=== PATIENT | male | born 1970 | race Caucasian/White ===

== ENCOUNTER 2016-05-17 08:10 | Inpatient (IN) | payer MEDICARE ==
[2016-05-17 09:49] LABS: Basophils % (Auto) 0.5 % (0.0-1.8); Eosinophils % (Auto) 0.6 % (0.0-4.3); Hematocrit 38.7 % (35.5-45.6); Hemoglobin 13.1 gm/dl (11.8-15.2); Mean Corpuscular HGB Conc 34 % (32-34); Mean Corpuscular Hemoglobin 27 pg (28-32); Mean Corpuscular Volume 79 fl (84-94); Platelet Count 286 K/mm3 (140-440); Red Blood Count 4.92 M/mm3 (3.65-5.03); Red Cell Distribution Width 14.3 % (13.2-15.2); White Blood Count 10.3 K/mm3 (4.5-11.0)
[2016-05-17 09:50] LABS: Anion Gap 16 mmol/L; BUN/Creatinine Ratio 13.33; Blood Urea Nitrogen 8 mg/dL (9-20); Carbon Dioxide 27 mmol/L (22-30); Chloride 101.2 mmol/L (98-107); Glucose 91 mg/dL (75-100); Potassium 3.7 mmol/L (3.6-5.0); Sodium 140 mmol/L (137-145)
--- NOTE | 2016-05-17 10:43 | Emergency Department Report ---
ED Psych HPI - General Chief Complaint: Psych Stated Complaint: DRUG OVERDOSE Time Seen by Provider: 05/17/16 10:27 Source: patient, EMS, RN notes reviewed Mode of arrival: Ambulatory Limitations: No Limitations - History of Present Illness Initial Comments: This is a 45-year-old male. He is previously unknown to me. The patient is brought to the hospital by EMS. As per EMS documentation, they were contacted at 7:34 AM for an ingestion attempt. As per EMS documentation, patient took Celexa 20 mg, and Wellbutrin xl, 150 mg. EMS estimates that patient took approximately 10 tablets of each, but they are not certain. The patient denies coingestions, he still feels depressed. He denies headache, neck pain, chest pain, abdominal pain and shortness of breath. Denies hallucinations. MD Complaint: suicidal ideation, feels depressed -: Sudden Associated Psychiatric Symptoms: suicidal ideation Quality: constant Improves With: none Worsens With: none Associated Symptoms: denies: confusion, headache, shortness of breath, nausea, vomiting, syncope, insomnia If Self Harm: admits thoughts of, has plan, has acted on plan, intentional overdose - Related Data Home Medications Medication Instructions Recorded Confirmed Last Taken Wellbutrin XL 150 mg PO DAILY 05/17/16 05/17/16 Unknown celeXA 20 mg PO DAILY 05/17/16 05/17/16 Unknown Allergies Allergy/AdvReac Type Severity Reaction Status Date / Time No Known Allergies Allergy Unverified 05/17/16 08:52 ED Review of Systems ROS: Stated complaint: DRUG OVERDOSE Other details as noted in HPI Constitutional: denies: fever Eyes: denies: eye discharge ENT: denies: epistaxis Respiratory: denies: cough Cardiovascular: denies: chest pain Gastrointestinal: denies: abdominal pain Genitourinary: as per HPI Musculoskeletal: as per HPI Skin: as per HPI Neurological: as per HPI, weakness Psychiatric: suicidal thoughts ED Past Medical Hx - Social History Smoking Status: Current Every Day Smoker Substance Use Type: Alcohol - Medications Home Medications: Home Medications Medication Instructions Recorded Confirmed Last Taken Type Wellbutrin XL 150 mg PO DAILY 05/17/16 05/17/16 Unknown History celeXA 20 mg PO DAILY 05/17/16 05/17/16 Unknown History ED Physical Exam - General Limitations: No Limitations General appearance: alert, in no apparent distress - Head Head exam: Present: atraumatic, normocephalic - Eye Eye exam: Present: normal appearance, PERRL, EOMI. Absent: nystagmus - ENT ENT exam: Present: normal exam, normal orophraynx, mucous membranes moist, normal external ear exam - Neck Neck exam: Present: normal inspection, full ROM. Absent: tenderness, meningismus - Respiratory Respiratory exam: Present: normal lung sounds bilaterally. Absent: respiratory distress, wheezes, rales, rhonchi, stridor, chest wall tenderness - Cardiovascular Cardiovascular Exam: Present: regular rate, normal rhythm, normal heart sounds. Absent: bradycardia, tachycardia, irregular rhythm, systolic murmur, diastolic murmur, rubs, gallop - GI/Abdominal GI/Abdominal exam: Present: soft, normal bowel sounds. Absent: distended, tenderness, guarding, rebound, rigid, pulsatile mass - Rectal Rectal exam: Present: deferred - Extremities Exam Extremities exam: Present: normal inspection, full ROM, normal capillary refill. Absent: tenderness, pedal edema, joint swelling, calf tenderness - Back Exam Back exam: Present: normal inspection, full ROM. Absent: tenderness, CVA tenderness (R), CVA tenderness (L), muscle spasm, paraspinal tenderness, vertebral tenderness - Neurological Exam Neurological exam: Present: alert, oriented X3, other (Extraocular movements intact. Tongue midline. No facial droop. Facial sensation intact to light touch in the V1, V2, V3 distribution bilaterally. 5 and 5 strength in 4 extremities.. Sensation is intact to light touch in 4 extremities.). Absent: motor sensory deficit - Psychiatric Psychiatric exam: Present: agitated, suicidal ideation - Skin Skin exam: Present: warm, dry, intact, normal color. Absent: rash ED Course Vital Signs 05/17/16 05/17/16 09:03 15:37 Temperature 98.6 F Pulse Rate 100 H 80 Respiratory 16 16 Rate Blood Pressure 105/75 129/89 [Left] O2 Sat by Pulse 96 99 Oximetry - Reevaluation(s) Reevaluation #1: 05/17/16 12:14 Differential diagnosis: Polysubstance ingestion, medical clearance for psychiatric evaluation Assessment and plan: 45-year-old male who is depressed, attempted to overdose on Wellbutrin and Celexa. He is currently afebrile with reassuring vital signs , and his tachycardia has resolved. He has a GCS of 15, with an NIH score of 0 , currently no active hallucinations, laboratory studies were unremarkable, urinalysis was unremarkable with the exception of cocaine. Clinically he is not cocaine intoxicated. Case is discussed with Elisa at the [facility]. Given overdose of Wellbutrin, they recommended admission for 23 hours for observation. [facility] recommends that wellbutrin overdoses can cause delayed onset seizures, sometimes 16 hours later after ingestion. They recommend standard treatment with benzodiazepines and supportive care with the patient has breakthrough seizures. The patient was not given charcoal prior to my evaluation, and I personally saw the patient at 10:00 AM, more than one hour after ingestion, therefore he is not a charcoal candidate. The case is discussed with the Hospital physician, Dr. Joshua, who accepts the patient to her service. Reevaluation #2: 05/17/16 12:17 seizure precautions, elopement precautions, suicide precautions, 1013 ordered ED Medical Decision Making - Lab Data Result diagrams: 05/17/16 09:15 05/17/16 09:15 Vital Signs 05/17/16 09:03 Temperature 98.6 F Pulse Rate 100 H Respiratory 16 Rate Blood Pressure 105/75 [Left] O2 Sat by Pulse 96 Oximetry Lab Results 05/17/16 05/17/16 05/17/16 Range/Units 08:00 08:00 09:15 WBC (4.5-11.0) K/mm3 RBC (3.65-5.03) M/mm3 Hgb (11.8-15.2) gm/dl Hct (35.5-45.6) % MCV (84-94) fl MCH (28-32) pg MCHC (32-34) % RDW (13.2-15.2) % Plt Count (140-440) K/mm3 Lymph % (Auto) (13.4-35.0) % Bennett % (Auto) (0.0-7.3) % Eos % (Auto) (0.0-4.3) % Baso % (Auto) (0.0-1.8) % Lymph # (1.2-5.4) K/mm3 Bennett # (0.0-0.8) K/mm3 Eos # (0.0-0.4) K/mm3 Baso # (0.0-0.1) K/mm3 Seg Neutrophils % (40.0-70.0) % Seg Neutrophils # (1.8-7.7) K/mm3 Sodium 140 (137-145) mmol/L Potassium 3.7 (3.6-5.0) mmol/L Chloride 101.2 (98-107) mmol/L Carbon Dioxide 27 (22-30) mmol/L Anion Gap 16 mmol/L BUN 8 L (9-20) mg/dL Creatinine 0.6 L (0.8-1.5) mg/dL Estimated GFR > 60 ml/min BUN/Creatinine Ratio 13.33 % Glucose 91 (75-100) mg/dL Calcium 9.0 (8.4-10.2) mg/dL Urine Color (Yellow) Urine Turbidity (Clear) Urine pH (5.0-7.0) Ur Specific [place] (1.003-1.030) Urine Protein (Negative) mg/dL Urine Glucose (UA) (Negative) mg/dL Urine Ketones (Negative) mg/dL Urine Blood (Negative) Urine Nitrite (Negative) Urine Bilirubin (Negative) Urine Urobilinogen (<2.0) mg/dL Ur Leukocyte Esterase (Negative) Urine WBC (Auto) (0.0-6.0) /HPF Urine RBC (Auto) (0.0-6.0) /HPF U Epithel Cells (Auto) (0-13.0) /HPF Urine Mucus /HPF Salicylates < 0.3 L (2.8-20.0) mg/dL Urine Opiates Screen Urine Methadone Screen Acetaminophen < 15.0 (10.0-30.0) ug/mL Ur Barbiturates Screen Ur Phencyclidine Scrn Ur Amphetamines Screen U Benzodiazepines Scrn Urine Cocaine Screen U Marijuana (THC) Screen Drugs of Abuse Note Plasma/Serum Alcohol (0-0.07) gm% 05/17/16 05/17/16 05/17/16 Range/Units 09:15 09:15 10:50 WBC 10.3 (4.5-11.0) K/mm3 RBC 4.92 (3.65-5.03) M/mm3 Hgb 13.1 (11.8-15.2) gm/dl Hct 38.7 (35.5-45.6) % MCV 79 L (84-94) fl MCH 27 L (28-32) pg MCHC 34 (32-34) % RDW 14.3 (13.2-15.2) % Plt Count 286 (140-440) K/mm3 Lymph % (Auto) 26.0 (13.4-35.0) % Bennett % (Auto) 6.2 (0.0-7.3) % Eos % (Auto) 0.6 (0.0-4.3) % Baso % (Auto) 0.5 (0.0-1.8) % Lymph # 2.7 (1.2-5.4) K/mm3 Bennett # 0.6 (0.0-0.8) K/mm3 Eos # 0.1 (0.0-0.4) K/mm3 Baso # 0.1 (0.0-0.1) K/mm3 Seg Neutrophils % 66.7 (40.0-70.0) % Seg Neutrophils # 6.9 (1.8-7.7) K/mm3 Sodium (137-145) mmol/L Potassium (3.6-5.0) mmol/L Chloride (98-107) mmol/L Carbon Dioxide (22-30) mmol/L Anion Gap mmol/L BUN (9-20) mg/dL Creatinine (0.8-1.5) mg/dL Estimated GFR ml/min BUN/Creatinine Ratio % Glucose (75-100) mg/dL Calcium (8.4-10.2) mg/dL Urine Color Yellow (Yellow) Urine Turbidity Clear (Clear) Urine pH 6.0 (5.0-7.0) Ur Specific [place] 1.025 (1.003-1.030) Urine Protein <15 mg/dl (Negative) mg/dL Urine Glucose (UA) Neg (Negative) mg/dL Urine Ketones Neg (Negative) mg/dL Urine Blood Neg (Negative) Urine Nitrite Neg (Negative) Urine Bilirubin Neg (Negative) Urine Urobilinogen 4.0 (<2.0) mg/dL Ur Leukocyte Esterase Neg (Negative) Urine WBC (Auto) 1.0 (0.0-6.0) /HPF Urine RBC (Auto) 1.0 (0.0-6.0) /HPF U Epithel Cells (Auto) < 1.0 (0-13.0) /HPF Urine Mucus Few /HPF Salicylates (2.8-20.0) mg/dL Urine Opiates Screen Urine Methadone Screen Acetaminophen (10.0-30.0) ug/mL Ur Barbiturates Screen Ur Phencyclidine Scrn Ur Amphetamines Screen U Benzodiazepines Scrn Urine Cocaine Screen U Marijuana (THC) Screen Drugs of Abuse Note Plasma/Serum Alcohol < 0.01 (0-0.07) gm% 05/17/16 Range/Units 10:50 WBC (4.5-11.0) K/mm3 RBC (3.65-5.03) M/mm3 Hgb (11.8-15.2) gm/dl Hct (35.5-45.6) % MCV (84-94) fl MCH (28-32) pg MCHC (32-34) % RDW (13.2-15.2) % Plt Count (140-440) K/mm3 Lymph % (Auto) (13.4-35.0) % Bennett % (Auto) (0.0-7.3) % Eos % (Auto) (0.0-4.3) % Baso % (Auto) (0.0-1.8) % Lymph # (1.2-5.4) K/mm3 Bennett # (0.0-0.8) K/mm3 Eos # (0.0-0.4) K/mm3 Baso # (0.0-0.1) K/mm3 Seg Neutrophils % (40.0-70.0) % Seg Neutrophils # (1.8-7.7) K/mm3 Sodium (137-145) mmol/L Potassium (3.6-5.0) mmol/L Chloride (98-107) mmol/L Carbon Dioxide (22-30) mmol/L Anion Gap mmol/L BUN (9-20) mg/dL Creatinine (0.8-1.5) mg/dL Estimated GFR ml/min BUN/Creatinine Ratio % Glucose (75-100) mg/dL Calcium (8.4-10.2) mg/dL Urine Color (Yellow) Urine Turbidity (Clear) Urine pH (5.0-7.0) Ur Specific [place] (1.003-1.030) Urine Protein (Negative) mg/dL Urine Glucose (UA) (Negative) mg/dL Urine Ketones (Negative) mg/dL Urine Blood (Negative) Urine Nitrite (Negative) Urine Bilirubin (Negative) Urine Urobilinogen (<2.0) mg/dL Ur Leukocyte Esterase (Negative) Urine WBC (Auto) (0.0-6.0) /HPF Urine RBC (Auto) (0.0-6.0) /HPF U Epithel Cells (Auto) (0-13.0) /HPF Urine Mucus /HPF Salicylates (2.8-20.0) mg/dL Urine Opiates Screen Presumptive negative Urine Methadone Screen Presumptive negative Acetaminophen (10.0-30.0) ug/mL Ur Barbiturates Screen Presumptive negative Ur Phencyclidine Scrn Presumptive negative Ur Amphetamines Screen Presumptive negative U Benzodiazepines Scrn Presumptive negative Urine Cocaine Screen Presumptive positive U Marijuana (THC) Screen Presumptive negative Drugs of Abuse Note Disclamer Plasma/Serum Alcohol (0-0.07) gm% - EKG Data EKG shows normal: sinus rhythm, axis, intervals, QRS complexes, ST-T waves Rate: normal - EKG Data Interpretation: normal EKG Critical care attestation.: If time is entered above; I have spent that time in minutes in the direct care of this critically ill patient, excluding procedure time. ED Disposition Clinical Impression: Polysubstance overdose, Mood disorder Disposition: OP ADMITTED IP TO THIS HOSP Is pt being admited?: Yes Condition: Good
[2016-05-17 11:15] LABS: Urine Drugs of Abuse Note Disclamer
[2016-05-17 11:31] LABS: Bilirubin,Urine NEG (Negative); Blood,Urine NEG (Negative); Ketones,Urine NEG (Negative); Leukocyte Esterase,Urine NEG (Negative); Mucus,Urine FEW /HPF; Nitrite,Urine NEG (Negative); Protein,Urine <15 mg/dL mg/dL (Negative)
--- NOTE | 2016-05-17 12:45 | Admit Criteria Form ---
Admission Criteria Documentation: DRUG INGESTION OR OVERDOSE Clinical Indications for Admission to Inpatient Care ( Place 'X' for any and all applicable criteria): Admission is indicated for severe toxicity as indicated by ANY ONE of the following(1)(2)(3)(4)(5)(6): [X ]I. Inpatient admission required rather than observation care (Also use Drug Ingestion or Overdose: Observation Care guideline as appropriate) because of ANY ONE of the following: [ ]a) Altered mental status that is severe or persistent [ ]b) Clinical finding (eg, metabolic acidosis, hypoglycemia, bradycardia) that is severe or persistent [ ]c) Toxic drug level that is persistent [X ]d) Psychiatric risk status not acceptable for outpatient management [ ]e) Continuous intravenous infusion of anticoagulation, platelet inhibitor, vasoactive, or antiarrhythmic medication (15)(16) [ ]f) Other condition, treatment or monitoring requiring inpatient admission [ ]II. Respiratory abnormalities [ ]III. Specific finding indicating severe and likely prolonged drug toxicity [ ]IV. Hemodynamic instability [ ]V. Dangerous arrhythmia [ ]. Hypertension requiring inpatient treatment Extended stay beyond goal length of stay may be needed for (4): [ ]a) Neurologic or respiratory compromise [ ]b) Hemodynamic instability [ ]c) Persistent toxic drug levels (25) [ ]d) Severe drug toxicities or complications [ ]e) Ongoing antidote treatment (eg, acetaminophen overdose)(5) [ ]f) Older patients(65 years or older) The original [employer] content created by [employer] has been revised. The portions of the content which have been revised are identified through the use of italic text or in bold, and [facility] has neither reviewed nor approved the modified material. All other unmodified content is copyright [facility] [employer]. Please see references footnoted in the original [employer] Snapsheet edition 2016 Admission Criteria Met: Yes
--- NOTE | 2016-05-17 13:31 | History and Physical Report ---
History of Present Illness Date of examination: 05/17/16 Date of admission: 05/17/16 Chief complaint: Intentional drug overdose History of present illness: 49-year-old -[place] male patient with significant past medical history of depression, resident off [facility] Was sent to the emergency room with the history of intentional drug overdose with Celexa and Wellbutrin with an intent to harm himself Patient reports that he was severely depressed and wanted to hurt himself In the emergency room poison control have recommended close observation for any seizures No evidence of psychosis, or altered level of consciousness,Denies any headache or dizziness No nausea vomiting or abdominal pain, Patient has no history of seizures, no seizure episodes after taking the medications, denies any chest pain or shortness of breath Past History Past Medical History: other (depression) Past Surgical History: No surgical history Social history: smoking, full code, other (cocaine use) Family history: no significant family history Medications and Allergies Allergies Allergy/AdvReac Type Severity Reaction Status Date / Time No Known Allergies Allergy Unverified 05/17/16 08:52 Home Medications Medication Instructions Recorded Confirmed Last Taken Type Wellbutrin XL 150 mg PO DAILY 05/17/16 05/17/16 Unknown History celeXA 20 mg PO DAILY 05/17/16 05/17/16 Unknown History Review of Systems Constitutional: no weight loss, no weight gain Ears, nose, mouth and throat: no nasal congestion, no nasal discharge Cardiovascular: no chest pain, no palpitations Respiratory: no cough, no shortness of breath Gastrointestinal: no abdominal pain, no nausea, no vomiting Genitourinary Male: no dysuria, no hematuria Musculoskeletal: no myalgias, no arthritis Integumentary: no rash, no lesions Neurological: no weakness, no parathesias, no seizures Psychiatric: suicidal ideation, depression, no anxiety Endocrine: no cold intolerance, no heat intolerance, no polydipsia, no polyuria Hematologic/Lymphatic: no easy bruising, no easy bleeding Allergic/Immunologic: no urticaria, no allergic rhinitis Exam - Constitutional Vitals: Temp Pulse Resp BP Pulse Ox 98.6 F 100 H 16 105/75 96 05/17/16 09:03 05/17/16 09:03 05/17/16 09:03 05/17/16 09:03 05/17/16 09:03 General appearance: Present: no acute distress, other (depressed) - EENT Eyes: Present: PERRL, EOM intact - Neck Neck: Present: supple, normal ROM - Respiratory Respiratory effort: normal Respiratory: negative: rales, rhonchi, wheezing - Cardiovascular Rhythm: regular Heart Sounds: Present: S1 & S2 - Extremities Extremities: no ischemia, pulses intact Peripheral Pulses: within normal limits - Abdominal General gastrointestinal: Present: soft, non-tender, non-distended, normal bowel sounds - Integumentary Integumentary: Present: clear, warm - Musculoskeletal Musculoskeletal: strength equal bilaterally - Psychiatric Psychiatric: depressed - Neurologic Neurologic: CNII-XII intact, moves all extremities Results - Labs CBC & Chem 7: 05/17/16 09:15 05/17/16 09:15 Labs: Abnormal lab results 05/17/16 05/17/16 05/17/16 Range/Units 08:00 09:15 09:15 MCV 79 L (84-94) fl MCH 27 L (28-32) pg BUN 8 L (9-20) mg/dL Creatinine 0.6 L (0.8-1.5) mg/dL Salicylates < 0.3 L (2.8-20.0) mg/dL Assessment and Plan --Intentional drug overdose/suicidal attempt Suicidal watch/1013 status Psych evaluation, supportive care --Drug overdose with Wellbutrin/Celexa No history of seizures Poison control recommended close observation for any seizures Seizure precautions, Ativan when necessary --History of Depression With suicidal ideation, management per psych --Ongoing tobacco use Smoking cessation counseling done, advised nicotine patch Spent 10 minutes counseling the patient --Cocaine abuse Patient strongly advised to quit recreational drug use Verbalized understanding --DVT prophylaxis With Lovenox Follow poison control for any further recommendations Possible discharge in 1-2 days back to inpatient psych facility [facility] if stable
[2016-05-17] MEDS ORDERED: ATIVAN IV PRN (14:02)
[2016-05-17] MEDS ORDERED: HABITROL TD ONE (15:00)
[2016-05-17] MEDS: NACL 0.9% 1000 ML 1,000 ML IV SCH (18:54)
--- NOTE | 2016-05-17 20:11 | Consultation ---
History of Present Illness - Reason for Consult Consult date: 05/17/16 Reason for consult: intentional overdose Requesting physician: MARICHUY OBANDO - Chief Complaint Chief complaint: Intentional drug overdose - History of Present Psychiatric Illness Mr. Gregory is a 45 year old male seen while in the emergency department. He acknowledged an intentional overdose of approximately 28 celexa 20mg tablets and 28 Wellbutrin XL 150mg. He took those around 7am on the current day. He was inpatient at [facility] less than one month ago for depression , anxiety, alcohol, and cocaine abuse. He stepped down to [facility], and while there he had a positive drug screen. He states later it was deemed a false positive, but the stress of it led him to relapse on alcohol and cocaine. At the time of interview he reported drowsiness. He denies hallucinations, seizures, withdrawal symptoms of alcohol. He is homeless and lacks social support. Medications and Allergies Allergies Allergy/AdvReac Type Severity Reaction Status Date / Time No Known Allergies Allergy Unverified 05/17/16 08:52 Home Medications Medication Instructions Recorded Confirmed Last Taken Type Wellbutrin XL 150 mg PO DAILY 05/17/16 05/17/16 Unknown History celeXA 20 mg PO DAILY 05/17/16 05/17/16 Unknown History Active Meds: Active Medications Enoxaparin Sodium (Lovenox) 40 mg SUB-Q QDAY ANGELY Sodium Chloride (Nacl 0.9% 1000 Ml) 1,000 mls @ 75 mls/hr IV DIRECT ANGELY Last Admin: 05/17/16 18:54 Dose: 75 mls/hr Lorazepam (Ativan) 2 mg IV Q1H PRN PRN Reason: Seizures Past psychiatric history - Past Medical History Past Surgical History: total hip replacement (right, 2009) - past Psychiatric treatment and history Psych: Anxiety, Addictions (using cocaine 1/2 gram daily since age 16. alcohol, 1/2 pint daily until recent inpatient treatment 05/09), Depression psychiatric treatment history: Most recently 05/09: [facility] inpatient [facility] - Social History Social history: single, smoking, alcohol abuse, other (homeless) Mental Status Exam - Vital signs Last Vital Signs Temp 98.6 F 05/17/16 09:03 Pulse 80 05/17/16 15:37 Resp 16 05/17/16 15:37 BP 129/89 02/25/17 15:37 Pulse Ox 99 05/17/16 15:37 - Exam Orientation: time, place, person Affect: depressed, other ("frustrated") Mood: congruent with affect Thought content: other (suicidal ideation/suicide attempt, no homicidal ideation ) Thought Process: Intact Perceptions: none Speech: slow Concentration: unable to pay attention Motor activity: lethargic Level of consciousness: other (able to answer questions but drowsy) Memory: Intact Sleep Symptoms: Difficulty Falling Asleep, Insomnia Interaction: irritable Results Result Diagrams: 05/17/16 09:15 05/17/16 09:15 All other labs normal. Assessment and Plan Assessment and plan: Contact poison control if not done. Monitor for seizures, signs/symptoms of Serotonin Syndrome (rigidity, myoclonus). Monitor for QT prolongation. Continue monitoring medically and for safety. Once medically cleared, recommend transfer to inpatient psychiatric hospital. - Psychiatric problem (1) Major depressive disorder, recurrent severe without psychotic features Current Visit: Yes Status: Acute (2) Intentional SSRI (selective serotonin reuptake inhibitor) overdose Current Visit: Yes Status: Acute Qualifiers: Encounter type: initial encounter Qualified Code(s): T43.222A - Poisoning by selective serotonin reuptake inhibitors, intentional self-harm, initial encounter (3) Alcohol use disorder Current Visit: Yes Status: Acute (4) Cocaine use disorder, mild, abuse Current Visit: Yes Status: Acute
[2016-05-18] MEDS: NACL 0.9% 1000 ML 1,000 ML IV SCH ×2 (08:58→21:35)
[2016-05-18] MEDS: LOVENOX SUB-Q SCH (09:02)
[2016-05-18] MEDS ORDERED: FLUARIX QUAD 2016-2017(36 MOS+) IM ONE (12:00)
[2016-05-18] MEDS ORDERED: PNEUMOVAX 23 IM ONE (12:00)
--- NOTE | 2016-05-18 13:16 | Progress Note ---
Assessment and Plan Assessment and plan: Suicidal attempt with drug overdose - Patient was followed closely - Poison control contacted and recommendation implemented - Patient denied any side being seen today - Patient stated he was depressed yesterday and that is why he tried to commit suicide Major depression - Psych consult - Patient with recommendation to continue psych medications are not Disposition - We will follow the patient today [facility]. History Interval history: Patient denied any suicidal ideation today, didn't feel depressed today. Hospitalist Physical - Physical exam Narrative exam: Not in cardiopulmonary distress. The patient appeared well nourished and normally developed. Vital signs as documented. Head exam is unremarkable. No scleral icterus . Neck is without jugular venous distension, thyromegaly, or carotid bruits. Lungs are clear to auscultation. Cardiac exam reveals regular rate and Rhythm. First and second heart sounds normal. No murmurs, rubs or gallops. Abdominal exam reveals normal bowel sounds, no masses, no organomegaly and no aortic enlargement. Extremities are nonedematous and both femoral and pedal pulses are normal. NURSES' AIDE: Alert and oriented 3. No focal weakness. - Constitutional Vitals: Temp Pulse Resp BP Pulse Ox 98.1 F 80 18 133/91 99 05/18/16 08:00 05/18/16 08:00 05/18/16 08:00 05/18/16 08:00 05/18/16 08:00 General appearance: Present: no acute distress, other (depressed) Results - Labs CBC & Chem 7: 05/17/16 09:15 05/17/16 09:15 Labs: Laboratory Last Values WBC 10.3 K/mm3 (4.5-11.0) 05/17/16 09:15 RBC 4.92 M/mm3 (3.65-5.03) 05/17/16 09:15 Hgb 13.1 gm/dl (11.8-15.2) 05/17/16 09:15 Hct 38.7 % (35.5-45.6) 05/17/16 09:15 MCV 79 fl (84-94) L 05/17/16 09:15 MCH 27 pg (28-32) L 05/17/16 09:15 MCHC 34 % (32-34) 05/17/16 09:15 RDW 14.3 % (13.2-15.2) 05/17/16 09:15 Plt Count 286 K/mm3 (140-440) 05/17/16 09:15 Lymph % (Auto) 26.0 % (13.4-35.0) 05/17/16 09:15 [place] % (Auto) 6.2 % (0.0-7.3) 05/17/16 09:15 Eos % (Auto) 0.6 % (0.0-4.3) 05/17/16 09:15 Baso % (Auto) 0.5 % (0.0-1.8) 05/17/16 09:15 Lymph # 2.7 K/mm3 (1.2-5.4) 05/17/16 09:15 [place] # 0.6 K/mm3 (0.0-0.8) 05/17/16 09:15 Eos # 0.1 K/mm3 (0.0-0.4) 05/17/16 09:15 Baso # 0.1 K/mm3 (0.0-0.1) 05/17/16 09:15 Seg Neutrophils % 66.7 % (40.0-70.0) 05/17/16 09:15 Seg Neutrophils # 6.9 K/mm3 (1.8-7.7) 05/17/16 09:15 Sodium 140 mmol/L (137-145) 05/17/16 09:15 Potassium 3.7 mmol/L (3.6-5.0) 05/17/16 09:15 Chloride 101.2 mmol/L (98-107) 05/17/16 09:15 Carbon Dioxide 27 mmol/L (22-30) 05/17/16 09:15 Anion Gap 16 mmol/L 05/17/16 09:15 BUN 8 mg/dL (9-20) L 05/17/16 09:15 Creatinine 0.6 mg/dL (0.8-1.5) L 05/17/16 09:15 Estimated GFR > 60 ml/min 05/17/16 09:15 BUN/Creatinine Ratio 13.33 % 05/17/16 09:15 Glucose 91 mg/dL (75-100) 05/17/16 09:15 Calcium 9.0 mg/dL (8.4-10.2) 05/17/16 09:15 Urine Color Yellow (Yellow) 05/17/16 10:50 Urine Turbidity Clear (Clear) 05/17/16 10:50 Urine pH 6.0 (5.0-7.0) 05/17/16 10:50 Ur Specific [place] 1.025 (1.003-1.030) 05/17/16 10:50 Urine Protein <15 mg/dl mg/dL (Negative) 05/17/16 10:50 Urine Glucose (UA) Neg mg/dL (Negative) 05/17/16 10:50 Urine Ketones Neg mg/dL (Negative) 05/17/16 10:50 Urine Blood Neg (Negative) 05/17/16 10:50 Urine Nitrite Neg (Negative) 05/17/16 10:50 Urine Bilirubin Neg (Negative) 05/17/16 10:50 Urine Urobilinogen 4.0 mg/dL (<2.0) 05/17/16 10:50 Ur Leukocyte Esterase Neg (Negative) 05/17/16 10:50 Urine WBC (Auto) 1.0 /HPF (0.0-6.0) 05/17/16 10:50 Urine RBC (Auto) 1.0 /HPF (0.0-6.0) 05/17/16 10:50 U Epithel Cells (Auto) < 1.0 /HPF (0-13.0) 05/17/16 10:50 Urine Mucus Few /HPF 05/17/16 10:50 Salicylates < 0.3 mg/dL (2.8-20.0) L 05/17/16 08:00 Urine Opiates Screen Presumptive negative 05/17/16 10:50 Urine Methadone Screen Presumptive negative 05/17/16 10:50 Acetaminophen < 15.0 ug/mL (10.0-30.0) 05/17/16 08:00 Ur Barbiturates Screen Presumptive negative 05/17/16 10:50 Ur Phencyclidine Scrn Presumptive negative 05/17/16 10:50 Ur Amphetamines Screen Presumptive negative 05/17/16 10:50 U Benzodiazepines Scrn Presumptive negative 05/17/16 10:50 Urine Cocaine Screen Presumptive positive 05/17/16 10:50 U Marijuana (THC) Screen Presumptive negative 05/17/16 10:50 Drugs of Abuse Note Disclamer 05/17/16 10:50 Plasma/Serum Alcohol < 0.01 gm% (0-0.07) 05/17/16 09:15
[2016-05-19 07:05] LABS: Basophils % (Auto) 0.6 % (0.0-1.8); Eosinophils % (Auto) 2.7 % (0.0-4.3); Hemoglobin 13.2 gm/dl (11.8-15.2); Mean Corpuscular HGB Conc 33 % (32-34); Mean Corpuscular Hemoglobin 26 pg (28-32); Mean Corpuscular Volume 79 fl (84-94); Platelet Count 292 K/mm3 (140-440); Red Blood Count 5.07 M/mm3 (3.65-5.03); Red Cell Distribution Width 14.3 % (13.2-15.2)
[2016-05-19 07:32] LABS: Alanine Aminotransferase 11 units/L (7-56); Albumin 3.7 g/dL (3.9-5); Albumin/Globulin Ratio 1.2 %; Alkaline Phosphatase 55 units/L (35-129); Anion Gap 17 mmol/L; BUN/Creatinine Ratio 14.28; Bilirubin,Total 0.4 mg/dL (0.1-1.2); Blood Urea Nitrogen 10 mg/dL (9-20); Calcium 8.4 mg/dL (8.4-10.2); Carbon Dioxide 25 mmol/L (22-30); Chloride 104.4 mmol/L (98-107); Glucose 93 mg/dL (75-100); Potassium 4.3 mmol/L (3.6-5.0); Sodium 142 mmol/L (137-145); Total Protein 6.9 g/dL (6.3-8.2)
[2016-05-19] MEDS: LOVENOX SUB-Q SCH (11:02)
[2016-05-19] MEDS: NACL 0.9% 1000 ML 1,000 ML IV SCH ×2 (11:03→23:08)
--- NOTE | 2016-05-19 14:54 | Progress Note ---
Assessment and Plan Assessment and plan: Suicidal attempt with drug overdose - Poison control contacted and recommendation implemented - Patient denied any suicidal ideation - Patient stated is stable medically Major depression - Psych consult placed - Barry no recommendation about psych meds. Disposition - We are waiting if [facility] can accept the patient. History Interval history: Patient denied any suicidal ideation today, didn't feel depressed today. Hospitalist Physical - Physical exam Narrative exam: Not in cardiopulmonary distress. The patient appeared well nourished and normally developed. Vital signs as documented. Head exam is unremarkable. No scleral icterus . Neck is without jugular venous distension, thyromegaly, or carotid bruits. Lungs are clear to auscultation. Cardiac exam reveals regular rate and Rhythm. First and second heart sounds normal. No murmurs, rubs or gallops. Abdominal exam reveals normal bowel sounds, no masses, no organomegaly and no aortic enlargement. Extremities are nonedematous and both femoral and pedal pulses are normal. [employer]: Alert and oriented 3. No focal weakness. - Constitutional Vitals: Temp Pulse Resp BP Pulse Ox 97.7 F 76 18 135/82 99 05/19/16 11:30 05/19/16 14:00 05/19/16 11:30 05/19/16 11:30 05/19/16 11:30 General appearance: Present: no acute distress, other (depressed) Results - Labs CBC & Chem 7: 05/19/16 06:54 05/19/16 06:54 Labs: Laboratory Last Values WBC 7.0 K/mm3 (4.5-11.0) 05/19/16 06:54 RBC 5.07 M/mm3 (3.65-5.03) H 05/19/16 06:54 Hgb 13.2 gm/dl (11.8-15.2) 05/19/16 06:54 Hct 40.0 % (35.5-45.6) 05/19/16 06:54 MCV 79 fl (84-94) L 05/19/16 06:54 MCH 26 pg (28-32) L 05/19/16 06:54 MCHC 33 % (32-34) 05/19/16 06:54 RDW 14.3 % (13.2-15.2) 05/19/16 06:54 Plt Count 292 K/mm3 (140-440) 05/19/16 06:54 Lymph % (Auto) 37.2 % (13.4-35.0) H 05/19/16 06:54 [place] % (Auto) 8.5 % (0.0-7.3) H 05/19/16 06:54 Eos % (Auto) 2.7 % (0.0-4.3) 05/19/16 06:54 Baso % (Auto) 0.6 % (0.0-1.8) 05/19/16 06:54 Lymph # 2.6 K/mm3 (1.2-5.4) 05/19/16 06:54 [place] # 0.6 K/mm3 (0.0-0.8) 05/19/16 06:54 Eos # 0.2 K/mm3 (0.0-0.4) 05/19/16 06:54 Baso # 0.0 K/mm3 (0.0-0.1) 05/19/16 06:54 Seg Neutrophils % 51.0 % (40.0-70.0) 05/19/16 06:54 Seg Neutrophils # 3.6 K/mm3 (1.8-7.7) 05/19/16 06:54 Sodium 142 mmol/L (137-145) 05/19/16 06:54 Potassium 4.3 mmol/L (3.6-5.0) 05/19/16 06:54 Chloride 104.4 mmol/L (98-107) 05/19/16 06:54 Carbon Dioxide 25 mmol/L (22-30) 05/19/16 06:54 Anion Gap 17 mmol/L 05/19/16 06:54 BUN 10 mg/dL (9-20) 05/19/16 06:54 Creatinine 0.7 mg/dL (0.8-1.5) L 05/19/16 06:54 Estimated GFR > 60 ml/min 05/19/16 06:54 BUN/Creatinine Ratio 14.28 % 05/19/16 06:54 Glucose 93 mg/dL (75-100) 05/19/16 06:54 Calcium 8.4 mg/dL (8.4-10.2) 05/19/16 06:54 Total Bilirubin 0.4 mg/dL (0.1-1.2) 05/19/16 06:54 AST 11 units/L (5-40) 05/19/16 06:54 ALT 11 units/L (7-56) 05/19/16 06:54 Alkaline Phosphatase 55 units/L (35-129) 05/19/16 06:54 Total Protein 6.9 g/dL (6.3-8.2) 05/19/16 06:54 Albumin 3.7 g/dL (3.9-5) L 05/19/16 06:54 Albumin/Globulin Ratio 1.2 % 05/19/16 06:54 Urine Color Yellow (Yellow) 05/17/16 10:50 Urine Turbidity Clear (Clear) 05/17/16 10:50 Urine pH 6.0 (5.0-7.0) 05/17/16 10:50 Ur Specific [place] 1.025 (1.003-1.030) 05/17/16 10:50 Urine Protein <15 mg/dl mg/dL (Negative) 05/17/16 10:50 Urine Glucose (UA) Neg mg/dL (Negative) 05/17/16 10:50 Urine Ketones Neg mg/dL (Negative) 05/17/16 10:50 Urine Blood Neg (Negative) 05/17/16 10:50 Urine Nitrite Neg (Negative) 05/17/16 10:50 Urine Bilirubin Neg (Negative) 05/17/16 10:50 Urine Urobilinogen 4.0 mg/dL (<2.0) 05/17/16 10:50 Ur Leukocyte Esterase Neg (Negative) 05/17/16 10:50 Urine WBC (Auto) 1.0 /HPF (0.0-6.0) 05/17/16 10:50 Urine RBC (Auto) 1.0 /HPF (0.0-6.0) 05/17/16 10:50 U Epithel Cells (Auto) < 1.0 /HPF (0-13.0) 05/17/16 10:50 Urine Mucus Few /HPF 05/17/16 10:50 Salicylates < 0.3 mg/dL (2.8-20.0) L 05/17/16 08:00 Urine Opiates Screen Presumptive negative 05/17/16 10:50 Urine Methadone Screen Presumptive negative 05/17/16 10:50 Acetaminophen < 15.0 ug/mL (10.0-30.0) 05/17/16 08:00 Ur Barbiturates Screen Presumptive negative 05/17/16 10:50 Ur Phencyclidine Scrn Presumptive negative 05/17/16 10:50 Ur Amphetamines Screen Presumptive negative 05/17/16 10:50 U Benzodiazepines Scrn Presumptive negative 05/17/16 10:50 Urine Cocaine Screen Presumptive positive 05/17/16 10:50 U Marijuana (THC) Screen Presumptive negative 05/17/16 10:50 Drugs of Abuse Note Disclamer 05/17/16 10:50 Plasma/Serum Alcohol < 0.01 gm% (0-0.07) 05/17/16 09:15
[2016-05-19] MEDS: HABITROL TD SCH (23:07)
[2016-05-20] MEDS: HABITROL TD SCH (09:57)
[2016-05-20] MEDS: LOVENOX SUB-Q SCH (10:00)
[2016-05-20] MEDS: NACL 0.9% 1000 ML 1,000 ML IV SCH (12:10)
--- NOTE | 2016-05-20 17:52 | Progress Note ---
Subjective - Reason for Consult Consult date: 05/20/16 Reason for consult: follow up - Chief Complaint Chief complaint: Intentional drug overdose Mental Status Exam - Vital signs Last Vital Signs Temp 97.8 F 05/20/16 15:44 Pulse 86 05/20/16 15:44 Resp 20 05/20/16 15:44 BP 134/90 05/20/16 15:44 Pulse Ox 97 05/20/16 15:44 - Exam Narrative exam: He reported doing well but minimizes the severity of the overdose of Wellbutrin and Celexa. He expects to start skilled nursing treatment once inpatient treatment is complete. Orientation: time, place, person Affect: anxious Mood: anxious Thought content: other (logical) Thought Process: Intact Perceptions: none Assessment and Plan Continue monitoring for safety and awaiting transfer - Patient Problems (1) Major depressive disorder, recurrent severe without psychotic features Current Visit: Yes Status: Acute (2) Intentional SSRI (selective serotonin reuptake inhibitor) overdose Current Visit: Yes Status: Acute Qualifiers: Encounter type: initial encounter Qualified Code(s): T43.222A - Poisoning by selective serotonin reuptake inhibitors, intentional self-harm, initial encounter (3) Alcohol use disorder Current Visit: Yes Status: Acute (4) Cocaine use disorder, mild, abuse Current Visit: Yes Status: Acute
--- NOTE | 2016-05-20 19:40 | Progress Note ---
Assessment and Plan Assessment and plan: Intentional drug overdose as suicidal attempt. He took bunch of Wellbutrin and Celexa pills . He is on a 1013 status. He is awaiting transfer to psychiatric facility. Depression. To transfer to Psych facility. Cocaine abuse. I discussed with him the importance of quitting cocaine use DVT prophylaxis. History Interval history: patient with intentional drug overdose with Celexa and Wellbutrin, wants to go home Hospitalist Physical - Physical exam Narrative exam: Gen: Not in acute distress HEENT :Normocephalic atraumatic Neck : Supple no JVD Lungs:clear to auscultation bilaterally, no crackles or wheeze Heart :S1 and S2 regular, no murmurs, rubs or gallop Abdomen : soft nontender, nondistended, normal bowel sounds Extremities: no edema, clubbing or cyanosis Neuro: awake, alert,oriented x 3, Psych: Depressed - Constitutional Vitals: Temp Pulse Resp BP Pulse Ox 97.8 F 86 20 134/90 97 05/20/16 18:27 05/20/16 18:27 05/20/16 18:27 05/20/16 18:27 05/20/16 18:27 Results - Labs CBC & Chem 7: 05/19/16 06:54 05/19/16 06:54 Labs: Laboratory Last Values WBC 7.0 K/mm3 (4.5-11.0) 05/19/16 06:54 RBC 5.07 M/mm3 (3.65-5.03) H 05/19/16 06:54 Hgb 13.2 gm/dl (11.8-15.2) 05/19/16 06:54 Hct 40.0 % (35.5-45.6) 05/19/16 06:54 MCV 79 fl (84-94) L 05/19/16 06:54 MCH 26 pg (28-32) L 05/19/16 06:54 MCHC 33 % (32-34) 05/19/16 06:54 RDW 14.3 % (13.2-15.2) 05/19/16 06:54 Plt Count 292 K/mm3 (140-440) 05/19/16 06:54 Lymph % (Auto) 37.2 % (13.4-35.0) H 05/19/16 06:54 [place] % (Auto) 8.5 % (0.0-7.3) H 05/19/16 06:54 Eos % (Auto) 2.7 % (0.0-4.3) 05/19/16 06:54 Baso % (Auto) 0.6 % (0.0-1.8) 05/19/16 06:54 Lymph # 2.6 K/mm3 (1.2-5.4) 05/19/16 06:54 [place] # 0.6 K/mm3 (0.0-0.8) 05/19/16 06:54 Eos # 0.2 K/mm3 (0.0-0.4) 05/19/16 06:54 Baso # 0.0 K/mm3 (0.0-0.1) 05/19/16 06:54 Seg Neutrophils % 51.0 % (40.0-70.0) 05/19/16 06:54 Seg Neutrophils # 3.6 K/mm3 (1.8-7.7) 05/19/16 06:54 Sodium 142 mmol/L (137-145) 05/19/16 06:54 Potassium 4.3 mmol/L (3.6-5.0) 05/19/16 06:54 Chloride 104.4 mmol/L (98-107) 05/19/16 06:54 Carbon Dioxide 25 mmol/L (22-30) 05/19/16 06:54 Anion Gap 17 mmol/L 05/19/16 06:54 BUN 10 mg/dL (9-20) 05/19/16 06:54 Creatinine 0.7 mg/dL (0.8-1.5) L 05/19/16 06:54 Estimated GFR > 60 ml/min 05/19/16 06:54 BUN/Creatinine Ratio 14.28 % 05/19/16 06:54 Glucose 93 mg/dL (75-100) 05/19/16 06:54 Calcium 8.4 mg/dL (8.4-10.2) 05/19/16 06:54 Total Bilirubin 0.4 mg/dL (0.1-1.2) 05/19/16 06:54 AST 11 units/L (5-40) 05/19/16 06:54 ALT 11 units/L (7-56) 05/19/16 06:54 Alkaline Phosphatase 55 units/L (35-129) 05/19/16 06:54 Total Protein 6.9 g/dL (6.3-8.2) 05/19/16 06:54 Albumin 3.7 g/dL (3.9-5) L 05/19/16 06:54 Albumin/Globulin Ratio 1.2 % 05/19/16 06:54 Urine Color Yellow (Yellow) 05/17/16 10:50 Urine Turbidity Clear (Clear) 05/17/16 10:50 Urine pH 6.0 (5.0-7.0) 05/17/16 10:50 Ur Specific [place] 1.025 (1.003-1.030) 05/17/16 10:50 Urine Protein <15 mg/dl mg/dL (Negative) 05/17/16 10:50 Urine Glucose (UA) Neg mg/dL (Negative) 05/17/16 10:50 Urine Ketones Neg mg/dL (Negative) 05/17/16 10:50 Urine Blood Neg (Negative) 05/17/16 10:50 Urine Nitrite Neg (Negative) 05/17/16 10:50 Urine Bilirubin Neg (Negative) 05/17/16 10:50 Urine Urobilinogen 4.0 mg/dL (<2.0) 05/17/16 10:50 Ur Leukocyte Esterase Neg (Negative) 05/17/16 10:50 Urine WBC (Auto) 1.0 /HPF (0.0-6.0) 05/17/16 10:50 Urine RBC (Auto) 1.0 /HPF (0.0-6.0) 05/17/16 10:50 U Epithel Cells (Auto) < 1.0 /HPF (0-13.0) 05/17/16 10:50 Urine Mucus Few /HPF 05/17/16 10:50 Salicylates < 0.3 mg/dL (2.8-20.0) L 05/17/16 08:00 Urine Opiates Screen Presumptive negative 05/17/16 10:50 Urine Methadone Screen Presumptive negative 05/17/16 10:50 Acetaminophen < 15.0 ug/mL (10.0-30.0) 05/17/16 08:00 Ur Barbiturates Screen Presumptive negative 05/17/16 10:50 Ur Phencyclidine Scrn Presumptive negative 05/17/16 10:50 Ur Amphetamines Screen Presumptive negative 05/17/16 10:50 U Benzodiazepines Scrn Presumptive negative 05/17/16 10:50 Urine Cocaine Screen Presumptive positive 05/17/16 10:50 U Marijuana (THC) Screen Presumptive negative 05/17/16 10:50 Drugs of Abuse Note Disclamer 05/17/16 10:50 Plasma/Serum Alcohol < 0.01 gm% (0-0.07) 05/17/16 09:15
[2016-05-21 09:55] VITALS: BP 131/85
[2016-05-21] MEDS: HABITROL TD SCH (10:33)
[2016-05-21] MEDS: LOVENOX SUB-Q SCH (10:33)
--- NOTE | 2016-05-21 10:47 | Progress Note ---
History Interval history: patient with intentional drug overdose with Celexa and Wellbutrin, no chest pain, no SOB Hospitalist Physical - Physical exam Narrative exam: Gen: Not in acute distress HEENT :Normocephalic atraumatic Neck : Supple no JVD Lungs:clear to auscultation bilaterally, no crackles or wheeze Heart :S1 and S2 regular, no murmurs, rubs or gallop Abdomen : soft nontender, nondistended, normal bowel sounds Extremities: no edema, clubbing or cyanosis Neuro: awake, alert,oriented x 3, Psych: Depressed - Constitutional Vitals: Temp Pulse Resp BP Pulse Ox 97.7 F 62 20 131/85 97 05/21/16 08:00 05/21/16 08:00 05/21/16 08:00 05/21/16 08:00 05/20/16 20:51 General appearance: Present: no acute distress, other (depressed) Results - Labs CBC & Chem 7: 05/19/16 06:54 05/19/16 06:54 Labs: Laboratory Last Values WBC 7.0 K/mm3 (4.5-11.0) 05/19/16 06:54 RBC 5.07 M/mm3 (3.65-5.03) H 05/19/16 06:54 Hgb 13.2 gm/dl (11.8-15.2) 05/19/16 06:54 Hct 40.0 % (35.5-45.6) 05/19/16 06:54 MCV 79 fl (84-94) L 05/19/16 06:54 MCH 26 pg (28-32) L 05/19/16 06:54 MCHC 33 % (32-34) 05/19/16 06:54 RDW 14.3 % (13.2-15.2) 05/19/16 06:54 Plt Count 292 K/mm3 (140-440) 05/19/16 06:54 Lymph % (Auto) 37.2 % (13.4-35.0) H 05/19/16 06:54 [place] % (Auto) 8.5 % (0.0-7.3) H 05/19/16 06:54 Eos % (Auto) 2.7 % (0.0-4.3) 05/19/16 06:54 Baso % (Auto) 0.6 % (0.0-1.8) 05/19/16 06:54 Lymph # 2.6 K/mm3 (1.2-5.4) 05/19/16 06:54 [place] # 0.6 K/mm3 (0.0-0.8) 05/19/16 06:54 Eos # 0.2 K/mm3 (0.0-0.4) 05/19/16 06:54 Baso # 0.0 K/mm3 (0.0-0.1) 05/19/16 06:54 Seg Neutrophils % 51.0 % (40.0-70.0) 05/19/16 06:54 Seg Neutrophils # 3.6 K/mm3 (1.8-7.7) 05/19/16 06:54 Sodium 142 mmol/L (137-145) 05/19/16 06:54 Potassium 4.3 mmol/L (3.6-5.0) 05/19/16 06:54 Chloride 104.4 mmol/L (98-107) 05/19/16 06:54 Carbon Dioxide 25 mmol/L (22-30) 05/19/16 06:54 Anion Gap 17 mmol/L 05/19/16 06:54 BUN 10 mg/dL (9-20) 05/19/16 06:54 Creatinine 0.7 mg/dL (0.8-1.5) L 05/19/16 06:54 Estimated GFR > 60 ml/min 05/19/16 06:54 BUN/Creatinine Ratio 14.28 % 05/19/16 06:54 Glucose 93 mg/dL (75-100) 05/19/16 06:54 Calcium 8.4 mg/dL (8.4-10.2) 05/19/16 06:54 Total Bilirubin 0.4 mg/dL (0.1-1.2) 05/19/16 06:54 AST 11 units/L (5-40) 05/19/16 06:54 ALT 11 units/L (7-56) 05/19/16 06:54 Alkaline Phosphatase 55 units/L (35-129) 05/19/16 06:54 Total Protein 6.9 g/dL (6.3-8.2) 05/19/16 06:54 Albumin 3.7 g/dL (3.9-5) L 05/19/16 06:54 Albumin/Globulin Ratio 1.2 % 05/19/16 06:54 Urine Color Yellow (Yellow) 05/17/16 10:50 Urine Turbidity Clear (Clear) 05/17/16 10:50 Urine pH 6.0 (5.0-7.0) 05/17/16 10:50 Ur Specific [place] 1.025 (1.003-1.030) 05/17/16 10:50 Urine Protein <15 mg/dl mg/dL (Negative) 05/17/16 10:50 Urine Glucose (UA) Neg mg/dL (Negative) 05/17/16 10:50 Urine Ketones Neg mg/dL (Negative) 05/17/16 10:50 Urine Blood Neg (Negative) 05/17/16 10:50 Urine Nitrite Neg (Negative) 05/17/16 10:50 Urine Bilirubin Neg (Negative) 05/17/16 10:50 Urine Urobilinogen 4.0 mg/dL (<2.0) 05/17/16 10:50 Ur Leukocyte Esterase Neg (Negative) 05/17/16 10:50 Urine WBC (Auto) 1.0 /HPF (0.0-6.0) 05/17/16 10:50 Urine RBC (Auto) 1.0 /HPF (0.0-6.0) 05/17/16 10:50 U Epithel Cells (Auto) < 1.0 /HPF (0-13.0) 05/17/16 10:50 Urine Mucus Few /HPF 05/17/16 10:50 Salicylates < 0.3 mg/dL (2.8-20.0) L 05/17/16 08:00 Urine Opiates Screen Presumptive negative 05/17/16 10:50 Urine Methadone Screen Presumptive negative 05/17/16 10:50 Acetaminophen < 15.0 ug/mL (10.0-30.0) 05/17/16 08:00 Ur Barbiturates Screen Presumptive negative 05/17/16 10:50 Ur Phencyclidine Scrn Presumptive negative 05/17/16 10:50 Ur Amphetamines Screen Presumptive negative 05/17/16 10:50 U Benzodiazepines Scrn Presumptive negative 05/17/16 10:50 Urine Cocaine Screen Presumptive positive 05/17/16 10:50 U Marijuana (THC) Screen Presumptive negative 05/17/16 10:50 Drugs of Abuse Note Disclamer 05/17/16 10:50 Plasma/Serum Alcohol < 0.01 gm% (0-0.07) 05/17/16 09:15
--- NOTE | 2016-05-21 10:50 | Discharge Summary ---
Providers - Providers Date of Admission: 05/17/16 16:20 Date of discharge: 05/21/16 Attending physician: MARICHUY RODRIGUEZ Primary care physician: PRIYA DE OLIVEIRA MD Hospitalization Condition: Good Disposition: DC/[place] PSY HOSP/PSY UNIT - Discharge Diagnoses (1) Suicide attempt by drug ingestion Status: Acute Qualifiers: Encounter type: E (2) Intentional SSRI (selective serotonin reuptake inhibitor) overdose Status: Acute Qualifiers: Encounter type: initial encounter Qualified Code(s): T43.222A - Poisoning by selective serotonin reuptake inhibitors, intentional self-harm, initial encounter Core Measure Documentation - Palliative Care Palliative Care/ Comfort Measures: Not Applicable - Core Measures Any of the following diagnoses?: none Exam - Constitutional Vitals: Temp Pulse Resp BP Pulse Ox 97.7 F 62 20 131/85 97 05/21/16 08:00 05/21/16 08:00 05/21/16 08:00 05/21/16 08:00 05/20/16 20:51 Plan Activity: no restrictions Diet: low fat, low cholesterol Additional Instructions: 1.Discharge to [facility] facility Follow up with: PRIYA DE OLIVEIRA MD [Primary Care Provider] - 3-5 Days Prescriptions: Famotidine [Pepcid] 20 mg PO BID #60 tablet
== END 2016-05-21 16:00 | DRG 918 ==
LOC: EEVIPCON 08:10 → ED 08:10 → 4A 16:20
PROVIDERS: ADMIT Internal Medicine; ATTEND Internal Medicine
DX: T43.222A Poisoning by selective serotonin reuptake inhibitors, intentional self-harm, initial encounter (principal); F33.2 Major depressive disorder, recurrent severe without psychotic features; T43.292A Poisoning by other antidepressants, intentional self-harm, initial encounter; F17.210 Nicotine dependence, cigarettes, uncomplicated; F14.10 Cocaine abuse, uncomplicated; F10.10 Alcohol abuse, uncomplicated; Y92.89 Other specified places as the place of occurrence of the external cause; Z79.899 Other long term (current) drug therapy; Z59.0 Homelessness; Z96.641 Presence of right artificial hip joint
CPT/HCPCS: 36415; 80048; 80053; 80307; 80320; 81001; 85025; 90471; 90686; 90732; 93005; 93010; 99285; G0008; G0009; G0480; J1650; J7030